=== PATIENT | female | born 1950 | race Two or more races ===

== ENCOUNTER 2020-08-29 12:57 | Outpatient (CLI) | payer OTHER | END 2020-08-29 15:00 | disposition home or self-care (01) | LOC: LAB 12:57 → TOM 12:57 → LAB 15:00 | PROVIDERS: ATTEND Radiology Diagnostic Radiology | DX: I71.2 Thoracic aortic aneurysm, without rupture (principal) ==

== ENCOUNTER 2020-09-06 07:16 | Outpatient (CLI) | payer OTHER | END 2020-09-06 14:14 | disposition home or self-care (01) | LOC: RAD 07:16 | PROVIDERS: ATTEND Internal Medicine | DX: Z12.31 Encounter for screening mammogram for malignant neoplasm of breast (principal); N60.11 Diffuse cystic mastopathy of right breast; N60.12 Diffuse cystic mastopathy of left breast; I71.2 Thoracic aortic aneurysm, without rupture | CPT/HCPCS: 71260; 76641; 77065; Q9965 ==

== ENCOUNTER 2022-05-05 14:19 | Outpatient (CLI) | payer OTHER | END 2022-05-05 14:27 | disposition home or self-care (01) | LOC: MAMO-SONO 14:19 | PROVIDERS: ATTEND Internal Medicine | DX: N60.11 Diffuse cystic mastopathy of right breast (principal); N60.12 Diffuse cystic mastopathy of left breast; C50.912 Malignant neoplasm of unspecified site of left female breast ==

== ENCOUNTER 2022-05-08 13:45 | Outpatient (CLI) | payer OTHER | END 2022-05-08 13:46 | disposition home or self-care (01) | LOC: NUCLEAR 13:45 | PROVIDERS: ATTEND Internal Medicine | DX: M81.0 Age-related osteoporosis without current pathological fracture (principal) ==

== ENCOUNTER 2022-05-22 14:09 | Outpatient (CLI) | payer OTHER | END 2022-05-22 14:20 | disposition home or self-care (01) | LOC: RAD 14:09 | PROVIDERS: ATTEND Internal Medicine | DX: I10 Essential (primary) hypertension (principal) ==

== ENCOUNTER 2022-07-29 13:07 | Outpatient (CLI) | payer OTHER | END 2022-07-29 13:15 | disposition home or self-care (01) | LOC: SONOGRAMA 13:07 | PROVIDERS: ATTEND Obstetrics & Gynecology Gynecology | DX: D25.1 Intramural leiomyoma of uterus (principal) ==

== ENCOUNTER 2023-03-26 07:47 | Outpatient (CLI) | payer OTHER | END 2023-03-26 07:53 | disposition home or self-care (01) | LOC: TOM 07:47 | PROVIDERS: ATTEND Internal Medicine Gastroenterology | DX: R10.11 Right upper quadrant pain (principal); R10.31 Right lower quadrant pain | CPT/HCPCS: 74177; Q9965 ==

== ENCOUNTER 2023-11-17 07:12 | Outpatient (CLI) | payer OTHER | END 2023-11-17 07:14 | disposition home or self-care (01) | LOC: MRI 07:12 | PROVIDERS: ATTEND Internal Medicine Gastroenterology | DX: K86.2 Cyst of pancreas (principal); C18.9 Malignant neoplasm of colon, unspecified; R97.8 Other abnormal tumor markers | CPT/HCPCS: 72197; 74183; Q9965; 72196; 74181; 74182 ==

== ENCOUNTER 2023-12-30 06:49 | Outpatient (CLI) | payer OTHER | END 2023-12-30 14:28 | disposition home or self-care (01) | LOC: MRI 06:49 | PROVIDERS: ATTEND Internal Medicine | DX: M54.2 Cervicalgia (principal); M47.892 Other spondylosis, cervical region | CPT/HCPCS: 72141 ==

== ENCOUNTER 2024-11-21 14:32 | Outpatient (CLI) | payer OTHER | END 2024-11-21 14:40 | disposition home or self-care (01) | LOC: SONOGRAMA 14:32 | PROVIDERS: ATTEND Internal Medicine | DX: R59.0 Localized enlarged lymph nodes (principal); C08.0 Malignant neoplasm of submandibular gland ==

== ENCOUNTER 2024-12-28 11:04 | Outpatient (CLI) | payer OTHER | END 2024-12-28 11:05 | disposition home or self-care (01) | LOC: NUCLEAR 11:04 | PROVIDERS: ATTEND Obstetrics & Gynecology Gynecology | DX: M81.0 Age-related osteoporosis without current pathological fracture (principal) ==